=== PATIENT | female | born 1935 | race African-American/Black ===

== ENCOUNTER 2021-06-15 14:05 | Inpatient (IN) | payer OTHER ==
[~2021-06-15] VITALS: Ht 165.1 cm; Wt 58.2 kg
--- NOTE | ~2021-06-15 | EMS ---
[address] [address] EMS Patient Care Report Name: SHANI ALBARADO Room #: 455-P ADM IN M.R.#: [id number] Admission: 06/15/21 Attend Phys: Sergey Hickman MD Discharge: Date of : 37 Report #: [id number] THIS REPORT FOR: //name// Report Transmitted: 06/16/2021 11:37 EMS Care Summary [place], [place]/[facility] Incident [id number] @ 06/15/2021 13:40 Incident Location [address] [place] [address] Patient SHANI ALBARADO Female, 85 Years 1935 Patient Address Patient History Congestive Heart Failure (CHF),Hypertension (HTN),Hyperlipidemia,Gout, Patient Allergies No known allergies, Patient Medications Allopurinol, Lovastatin, Triamterene, Ventolin, Amlodipine, Tamsulosin, Chief Complaint Weakness Disposition Transported No Lights/[place] Dispatch Reason Sick Person Transported To [facility] Narrative Arrived on scene to meet staff of the fdc with the patient. Patient stated that she had been "hurting all over for a couple months." Patient was alert to name and city, but could not answer any other orientation questions. intermediate staff was unable to provide any verbal information relating to the patient's mental status baseline, any recent history of falls, injuries, or medical conditions. Staff was also unable to provide any information relating [address] [address] EMS Patient Care Report Name: SHANI ALBARADO Room #: 455-P ADM IN M.R.#: [id number] Admission: 06/15/21 Attend Phys: Sergey Hickman MD Discharge: Date of : 37 Report #: [id number] to the reason or event(s) that occurred leading to the patient becoming a resident at the nursing facility. Patient was unable to give a specific location of pain, and any location I palpated was. Patient was AO2/GCS14 upon our arrival, when asked if this was the patient's baseline three individual fdc staff members stated "I don't know." While the patient was still seated in her bed a rapid assessment for injuries was performed. Patient had pain on palpation to her arms, chest, abdomen, hips, and legs. No abnormalities, deformities, dislocations, crepitus, or swelling were felt on palpation. Initial Vitals @13:56P: 105,R: 16,BP: 138/73,Pain: 4/10,GCS: 14,CO: 6,SpO2: 97,Revised Trauma: 12, @13:58P: 108,R: 16,BP: 133/71,Pain: 4/10,GCS: 14,CO: 5,SpO2: 98,Revised Trauma: 12, Assessments @13:49MENTAL:Confused,Place Oriented,Person Oriented,SKIN:HEENT:Head/Face: No Abnormalities,Neck/Airway: No Abnormalities,LUNG SOUNDS:Left Upper: No Abnormalities,Right Upper: No Abnormalities,Left Lower: No Abnormalities,Right Lower: No Abnormalities,ABDOMEN:Left Upper: No Abnormalities,Right Upper: No Abnormalities,Left Lower: No Abnormalities,Right Lower: No Abnormalities,PELVIS//GI:No Abnormalities,EXTREMITIES:Right Leg: Weakness,Left Leg: Weakness,Left Arm: No Abnormalities,Right Arm: No Abnormalities,PULSE:NEURO:No Abnormalities, Impression Generalized Weakness Procedures @13:49ALS AssessmentResponse: UnchangedSucceeded Timeline 13:38,Call Received 13:38,Dispatch Notified 13:40,Dispatched 13:40,En Route 13:47,On Scene 13:49,At Patient 13:49,ALS Assessment,Response: UnchangedSucceeded, 13:54,Depart Scene 13:56,BP: 138/73 M,PULSE: 105,RR: 16 R,SPO2: 97 Ox,ETCO2: ,BG: ,PAIN: 4,GCS: 14, 13:58,BP: 133/71 M,PULSE: 108,RR: 16 R,SPO2: 98 Ox,ETCO2: ,BG: ,PAIN: 4,GCS: 14, 14:03,At Destination [address] [address] EMS Patient Care Report Name: PERSHNAI SHAKEEL Room #: 455-P ADM IN M.R.#: [id number] Admission: 06/15/21 Attend Phys: Sergey Hickman MD Discharge: Date of : 37 Report #: [id number] 14:15,Call Closed Disclaimer v1.1 Copyright 2020 [employer] This EMS Care Summary contains data elements from the applicable legal record (which may be displayed differently). It is designed to provide pertinent information for the following purposes: continuity of care, clinical quality, and state data reporting. The complete legal record is available to ED staff and administrators of the receiving hospital in [employer]'s Patient Tracker. All data is provided "as is."
--- NOTE | ~2021-06-15 | EMS ---
[address] [address] EMS Patient Care Report Name: SHANI ALBARADO Room #: 455-P ADM IN M.R.#: [id number] Admission: 06/15/21 Attend Phys: Sergey Hickman MD Discharge: Date of : 37 Report #: [id number] THIS REPORT FOR: //name// Report Transmitted: 06/18/2021 16:16 EMS Care Summary [place], [place]/[facility] Incident [id number] @ 06/15/2021 13:40 Incident Location [address] [place] [address] Patient SHANI ALBARADO Female, 85 Years 1935 Patient Address Patient History Congestive Heart Failure (CHF),Hypertension (HTN),Hyperlipidemia,Gout, Patient Allergies No known allergies, Patient Medications Allopurinol, Lovastatin, Triamterene, Ventolin, Amlodipine, Tamsulosin, Chief Complaint Weakness Disposition Transported No Lights/[place] Dispatch Reason Sick Person Transported To [facility] Narrative Arrived on scene to meet staff of the group home with the patient. Patient stated that she had been "hurting all over for a couple months." Patient was alert to name and city, but could not answer any other orientation questions. assisted staff was unable to provide any verbal information relating to the patient's mental status baseline, any recent history of falls, injuries, or medical conditions. Staff was also unable to provide any information relating [address] [address] EMS Patient Care Report Name: SHANI ALBARADO Room #: 455-P ADM IN M.R.#: [id number] Admission: 06/15/21 Attend Phys: Sergey Hickman MD Discharge: Date of : 37 Report #: [id number] to the reason or event(s) that occurred leading to the patient becoming a resident at the nursing facility. Patient was unable to give a specific location of pain, and any location I palpated was. Patient was AO2/GCS14 upon our arrival, when asked if this was the patient's baseline three individual group home staff members stated "I don't know." While the patient was still seated in her bed a rapid assessment for injuries was performed. Patient had pain on palpation to her arms, chest, abdomen, hips, and legs. No abnormalities, deformities, dislocations, crepitus, or swelling were felt on palpation. Initial Vitals @13:56P: 105,R: 16,BP: 138/73,Pain: 4/10,GCS: 14,CO: 6,SpO2: 97,Revised Trauma: 12, @13:58P: 108,R: 16,BP: 133/71,Pain: 4/10,GCS: 14,CO: 5,SpO2: 98,Revised Trauma: 12, Assessments @13:49MENTAL:Person Oriented,Place Oriented,Confused,SKIN:HEENT:Head/Face: No Abnormalities,Neck/Airway: No Abnormalities,LUNG SOUNDS:Left Upper: No Abnormalities,Right Upper: No Abnormalities,Left Lower: No Abnormalities,Right Lower: No Abnormalities,ABDOMEN:Left Upper: No Abnormalities,Right Upper: No Abnormalities,Left Lower: No Abnormalities,Right Lower: No Abnormalities,PELVIS//GI:No Abnormalities,EXTREMITIES:Left Leg: Weakness,Right Leg: Weakness,Left Arm: No Abnormalities,Right Arm: No Abnormalities,PULSE:NEURO:No Abnormalities, Impression Generalized Weakness Procedures @13:49ALS AssessmentResponse: UnchangedSucceeded Timeline 13:38,Call Received 13:38,Dispatch Notified 13:40,Dispatched 13:40,En Route 13:47,On Scene 13:49,At Patient 13:49,ALS Assessment,Response: UnchangedSucceeded, 13:54,Depart Scene 13:56,BP: 138/73 M,PULSE: 105,RR: 16 R,SPO2: 97 Ox,ETCO2: ,BG: ,PAIN: 4,GCS: 14, 13:58,BP: 133/71 M,PULSE: 108,RR: 16 R,SPO2: 98 Ox,ETCO2: ,BG: ,PAIN: 4,GCS: 14, 14:03,At Destination [address] [address] EMS Patient Care Report Name: PERSHANI Room #: 455-P ADM IN M.R.#: [id number] Admission: 06/15/21 Attend Phys: Sergey Hickman MD Discharge: Date of : 37 Report #: [id number] 14:15,Call Closed Disclaimer v1.1 Copyright 2020 [facility] This EMS Care Summary contains data elements from the applicable legal record (which may be displayed differently). It is designed to provide pertinent information for the following purposes: continuity of care, clinical quality, and state data reporting. The complete legal record is available to ED staff and administrators of the receiving hospital in [employer]s Patient Tracker. All data is provided "as is."
[~2021-06-15 14:05] MED LIST: ACYCLOVIR 400400 MG PO; CORTISPORIN OTI10 M2 OT; HYDROCODON-ACE1 EAC7 PO; LISINOPRIL40 MG PO; LOVASTAT40; NITROSTAT0.4 MG SL; NORCO 5-325 TA1 EACH PO; OMEPRAZOLE 20 M20 MG PO; TRIAMTERENE-HC1 EAC1 PO; ZOFRAN4 MG PO
[2021-06-15 14:06] VITALS: BP 158/76
--- NOTE | 2021-06-15 14:13 | NUR ---
RIVKA SAWANT (DAUGHTER ) [phone]
[2021-06-15 14:31] LABS: ABSOLUTE NEUTROPHILS 10.2 thou/uL (1.4-8.2); BASOPHILS 0.4 % (0.0-2.0); EOSINOPHILS 0.5 % (0.0-3.0); HEMATOCRIT 34.3 % (37.0-47.0); LYMPHOCYTES 7.4 % (24.0-44.0); MCH 30.2 pg (26.0-34.0); MCHC 32.2 g/dL (28.0-37.0); MCV 93.9 fL (80.0-100.0); MONOCYTES 3.8 % (1.0-8.0); PLATELET COUNT 269 thou/uL (150-400); POLYS 87.9 % (36.0-66.0); RBC 3.65 mil/uL (4.20-5.00); RDW 15.5 % (10.5-14.5); WBC 11.7 thou/uL (4.0-11.0)
[2021-06-15 14:56] LABS: ALBUMIN 2.4 g/dL (3.4-5.0); CALCIUM 9.5 mg/dL (8.5-10.1); CREATININE 3.3 mg/dL (0.6-1.0); TOTAL BILIRUBIN 0.2 mg/dL (0.2-1.0); TOTAL PROTEIN 7.2 g/dL (6.4-8.2)
[2021-06-15 15:02] LABS: POTASSIUM 6.7 mmol/L (3.5-5.1)
[2021-06-15 15:08] LABS: MAGNESIUM 2.4 mg/dL (1.8-2.4); PHOSPHORUS 5.7 mg/dL (2.5-4.9)
[2021-06-15 15:24] LABS: URINE BILIRUBIN NEGATIVE (Negative); URINE BLOOD 3+ (Negative); URINE CLARITY SL CLOUDY; URINE COLOR YELLOW; URINE GLUCOSE-RANDOM* NEGATIVE (Negative); URINE KETONES NEGATIVE (Negative); URINE NITRITE-REFLEX NEGATIVE (Negative); URINE PROTEIN (DIPSTICK) 2+ (Negative); URINE UROBILINOGEN 0.2 E.U./dl (0.2-1.0)
[2021-06-15 15:41] LABS: URINE LEUKOCYTES-REFLEX 1+ (Negative)
[2021-06-15 16:03] LABS: BACTERIA-REFLEX >30 Many /HPF (None Seen); SQUAMOUS 0-3 Few /LPF (0-3); URINE RBC 1-2 Rare /HPF (NONE SEEN); URINE WBC-REFLEX 6-15 Few /HPF (0-5)
--- NOTE | 2021-06-15 16:29 | EKG ---
[place] [address] 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 : 1935 Requested By: Ricky Negrete Order Number: [id number] MD: Armand Rocha Measurements Intervals [place] Rate: 109 P: 37 AK: 129 QRS: 8 QRSD: 95 T: 114 QT: 317 QTc: 427 Interpretive Statements Sinus tachycardia Nonspecific T abnormalities, lateral leads Compared to ECG 03/17/2013 12:44:42 T-wave abnormality now present Sinus bradycardia no longer present Atrial premature complex(es) no longer present Electronically Signed On 06-15-2021 16:29:45 CDT by Armand Rocha [email or web address] <ELECTRONICALLY SIGNED> By: Armand Rocha MD, [facility] 06/15/21 1629 1423 1423 Armand Rocha MD, FACC /EPI
[2021-06-15] MEDS ORDERED: ALLOPURINOL 30300 M1 PO (16:41)
[2021-06-15] MEDS ORDERED: OLMESARTAN MEDO40 MG PO (16:41)
[2021-06-15] MEDS ORDERED: TRIAMTERENE-HC1 EAC2 PO (16:41)
[2021-06-15] MEDS ORDERED: NORVASC5 MG PO (16:41)
[2021-06-15] MEDS ORDERED: LOVASTATIN40 MG PO (16:41)
[2021-06-15] MEDS ORDERED: OMEPRAZOLE 20 M20 M1 PO (16:41)
[2021-06-15 19:09] VITALS: BP 158/76
[2021-06-15 19:25] VITALS: BP 129/63
[2021-06-15 20:03] VITALS: BP 119/54
[2021-06-15 22:24] LABS: CREATININE 3.1 mg/dL (0.6-1.0); POTASSIUM 5.8 mmol/L (3.5-5.1)
[2021-06-15 22:46] LABS: CALCIUM 8.4 mg/dL (8.5-10.1)
[2021-06-16] MEDS ORDERED: CHILDREN'S ASPI81 M1 PO (05:06)
[2021-06-16] MEDS ORDERED: FLOMAX0.4 MG PO (05:07)
[2021-06-16] MEDS ORDERED: VENTOLIN HFA 1818 GM INH (05:09)
--- NOTE | 2021-06-16 06:12 | NUR ---
Pt admitted from ED with UTI/Hyperkalemia. A/OX1-2,VSS. Oriented to the unit. Unable to sign admission paperwork d/t cognitive status. Pt incontinent of B&b,cleveland placed per seed cleaning machine operator order,dark cloudy/sediment urine noted upon insertion. Open sore noted on sacrum,wound picture taken,zguard and foam applied. Fall precautions in place,will continue to monitor pt.
[2021-06-16 07:57] LABS: HEMATOCRIT 33.1 % (37.0-47.0); HEMOGLOBIN 10.2 gm/dL (12.0-15.0); MCH 29.3 pg (26.0-34.0); MCHC 30.9 g/dL (28.0-37.0); PLATELET COUNT 250 thou/uL (150-400); RBC 3.49 mil/uL (4.20-5.00); RDW 15.7 % (10.5-14.5); WBC 11.9 thou/uL (4.0-11.0)
[2021-06-16 08:17] LABS: CALCIUM 8.5 mg/dL (8.5-10.1); CREATININE 2.8 mg/dL (0.6-1.0); MAGNESIUM 2.1 mg/dL (1.8-2.4); PHOSPHORUS 4.9 mg/dL (2.5-4.9); POTASSIUM 5.8 mmol/L (3.5-5.1)
--- NOTE | 2021-06-16 09:41 | NUR ---
WOUND CONSULT; ASSESSMENT OF THE AREA TO THE COCCYX IS 1 X 1 X 0.1 THERE IS NO S/S OF INFECTION AT THIS TIME. THERE IS ONLY SMALL AMOUNT OF SEROSANGINOUS DRAINAGE. RECCOMMENDATIONS; -Q2H TURNING AT A MINIMUM. -CLEANSE WITH NORMAL SALINE,DRY, APPLY ZGUARD BID. -USE PILLOWS AND/OR WEDGES TO OFFLOAD AREA.
[2021-06-16 10:28] LABS: PLATELET ESTIMATE NORMAL
[2021-06-16 16:07] LABS: HAV IgM AB (ANTI-HAV IgM) Negative (Negative); HEPATITIS B SURFACE AG Negative (Negative); HEPATITIS C VIRUS AB <0.1 (0.0-0.9)
--- NOTE | 2021-06-16 16:55 | NUR ---
PT ADMITTED RELATED TO UTI/HYPERKALEMIA. CM REVIEWED CHART AND SPOKE WITH CARE TEAM. CM CALLED PT'S AMANDAECE RIVKA SAWANT . SHE INDICATED THAT PT HAD BEEN AT [facility] WITH [facility] AND HAD GONE TO [facility] SKILLED IN [place]. NIECE HAD INDICATED THAT PRIOR TO THAT PT HAD LIVED ALONE IN A HOUSE AND HAD BEEN INDEPENENT WITH GAIT AND ADLS. SHE STATED THAT PT HAD A SISTER WHO HELPED WITH TRANSPORTATION TO APPOINTMENTS. NIECE INDICATED THAT PT HAD BEEN WALKING UPON ADMISSION TO [facility] AND IS NOW DEPENDENET FOR ALL CARES. SHE INDICATED SHE DIDN'T WANT PT RETURNING TO [facility]. CM TO EMAIL HER A [facility] LIST. CM INDICATED CM CAN'T GAURENTEE THAT CM WILL BE ABLE TO FIND PT NEW PLACEMENT UPON DC BUT THAT WE CAN ATTEMPT TO DO SO. CM FOLLOWING REGARDING DC PLANNING.
--- NOTE | 2021-06-16 18:34 | NUR ---
ASSUMED CARE OF PT AT 0700. PATIENT IS ORIENTED BUT DROWSY AND FORGETFUL. PT RESTED THROUGHOUT THE DAY, WORKED WITH PT AND OT. NOTICED PT HR ELEVATING LATER IN EVENING, CALLED PHARMACY TO FIX FLUIDS. WILL TELL SECONDARY SET UP MAN RN TO MONITOR CLOSELY. FAMILY IS CONCERNED OF PT DECLINE OVER THE LAST FEW MONTHS. WILL CONTINUE TO MONITOR.
[2021-06-16 19:26] VITALS: BP 122/65
--- NOTE | 2021-06-17 04:03 | NUR ---
PROGRESS PT ALERT AND ORIENTED X2, DEAL INTACT DRAINING ADEQUATE AMOUNT OF DARK CAT URINE. VSS, ACCUCHECKS WNL NO SSI INDICATED. PT HAS POOR APPETITE DINNER TRAY WAS UNTOUCHED ATTEMPTED TO FEED HER BUT SHE REFUSED, ONLY TOOK A FEW SIPS OF LIQUID WITH HS MEDS. BICARB IVF'S INFUSING @80CC/HR INTO LF WITHOUT DIFFICULTY. SACRAL WOUND CLEANSED AND ZYGUARD APPLIED PT REPOSITIONED MUCH TOLERATED. TELEMETRY RUNNING TACHYCARDIA WITH RATES IN THE LOW 100'S TO THE 119. LUNGS CLEAR BUT DIMINISHED. PLAN IS TO HYDRATE PT CORRECT HEDY AND INCREASE STRENGTH WITH PT/OT AND ST. CONTINUE TO MONITOR.
[2021-06-17 09:05] LABS: ALBUMIN 1.7 g/dL (3.4-5.0); CALCIUM 8.4 mg/dL (8.5-10.1); CREATININE 3.1 mg/dL (0.6-1.0); POTASSIUM 5.3 mmol/L (3.5-5.1)
--- NOTE | 2021-06-17 16:09 | NUR ---
CM EMAILED [facility] LIST FOR REVIEW. NO RESPONSE RECEIVED. CM FOLLOWING REGARDING DC PLANNING.
[2021-06-17 16:52] LABS: ALBUMIN 1.7 g/dL (3.4-5.0); DIRECT BILIRUBIN < 0.1 mg/dL (<0.1-0.2); SGOT 941 U/L (15-37); SGPT 493 U/L (14-59); TOTAL BILIRUBIN 0.2 mg/dL (0.2-1.0); TOTAL PROTEIN 4.9 g/dL (6.4-8.2)
[2021-06-17 17:07] VITALS: BP 121/64
--- NOTE | 2021-06-17 18:34 | NUR ---
END SHIFT NOTE: PT REMAINED SAFE AND COMFORTABLE DURING THE SHIFT. CHANGED Q2 , DRESSING CHANGED IN COCCYX WOUND, VSS, MEDS ADM ORDERED, VERY POOR APPETITE ALTHOUGH WAS NPO THE REST OF THE DAY DUE TO SCHEDULE ABM USD( SEE RESULT ). VSS, CONT POC GLUC CONTROLLED.
[2021-06-17 19:42] LABS: % SATURATION 26 % (20-39); IRON 32 ug/dL (50-170); TIBC 121 ug/dL (250-450)
[2021-06-17 19:56] VITALS: BP 120/62
[2021-06-18 04:07] LABS: IgG 811 mg/dL (586-1602)
[2021-06-18 05:59] LABS: HEMATOCRIT 27.4 % (37.0-47.0); MCH 30.9 pg (26.0-34.0); MCV 93.5 fL (80.0-100.0); RBC 2.93 mil/uL (4.20-5.00); RDW 15.5 % (10.5-14.5); WBC 12.9 thou/uL (4.0-11.0)
--- NOTE | 2021-06-18 06:20 | NUR ---
ASSUMED CARE OF PT AROUND 1900HRS. PT IS AOX2 AND NEEDS MUST BE ASSUMED. FALL PRECAUTION IN PLACE. PT DENIED PAIN, NAUSEA OR SOA. ASSESSMENT CHARTED. DEAL IN PLACE AND PATIENT. PT TURNED Q2H. ASSESSMENT CHARTED. UNABE TO RETRIEVE MR ROBERT NOC; WILL INFORM US AND ONCOMING RN. PT WAS ABLE TO GET COMFORTABLE AND SLEEP RART OF THE SHIFT. VSS AND NO S/S OF ACUTE DISTRESS. WILL CONTINUE TO MONITOR FOR CHANGES.
[2021-06-18 06:32] LABS: ALBUMIN 1.6 g/dL (3.4-5.0); CALCIUM 8.2 mg/dL (8.5-10.1); CREATININE 3.2 mg/dL (0.6-1.0); PHOSPHORUS 6.3 mg/dL (2.5-4.9); POTASSIUM 5.3 mmol/L (3.5-5.1); TOTAL BILIRUBIN 0.3 mg/dL (0.2-1.0); TOTAL PROTEIN 5.4 g/dL (6.4-8.2)
[2021-06-18 08:00] VITALS: BP 150/85
[2021-06-18 11:07] LABS: HIV ANTIBODY Non Reactive (Non Reactive)
[2021-06-18 12:07] LABS: ANA INTERPRETATION Negative (Negative); CERULOPLASMIN 20.9 mg/dL (19.0-39.0)
--- NOTE | 2021-06-18 12:34 | NUR ---
WOUND CARE F/U; F/U EVAL IS UNREMARKABLE. THE PATIENT IS COOPERATIVE AND VERY PLEASANT. THE WOUND REMAINS STABLE. NO S/S OF INFECTION. THE PATIENT CAN FEEL THE PAIN RELATED TO HER COCCYX WOUND AND REQUEST THEREFORE TO BE TURNED, WHICH I DID. AND APPLIED ZGUTOM. SHE STATED "THAT FEELS BETTER". RECCOMMENDATIONS; -CONTINUE TO TURN THE PATIENT Q2H AT A MINIMUM. -CONTINUE ZGUARD. DISCUSSED WITH RN TODAY.
--- NOTE | 2021-06-18 12:36 | NUR ---
HOSPITALIST INDICATED THAT HE HAD CONSULTED 5N. PT AND ST WORKING WITH PT OT HAS DISCHARGED. CM SPOKE WITH PT'S NIECE AND SHE HADN'T GOTTEN EMAIL FROM [facility] WITH [facility] LIST. CM RESENT IT THIS AM. CM FOLLOWING REGARDING DC PLANNING.
[2021-06-18 15:37] VITALS: BP 136/67
[2021-06-18 16:19] LABS: INR 1.14; PROTIME 12.3 Seconds (10.5-12.1)
--- NOTE | 2021-06-18 18:13 | NUR ---
Assumed pt care at 7am.Pt in bed very anxious about getting out of bed. Assessment completed.vss but elevated bp noted.Pt transfered to chair wih 2 assist for breakfast. Fair appetite. Dr Hickman and Luis here,order noted. Pt niece called and updates given.Wound care here and giulia applied to pt peressure sore on her bottom.Pt has fair appetite. Fall bundle in place. Will continue to monitor.
[2021-06-18 19:54] VITALS: BP 141/86
[2021-06-19 06:48] LABS: ALBUMIN 1.7 g/dL (3.4-5.0); ANION GAP 12 mmol/L (7-16); BUN 95 mg/dL (7-18); CALCIUM 7.5 mg/dL (8.5-10.1); CHLORIDE 99 mmol/L (98-107); CO2 28 mmol/L (21-32); CREATININE 3.2 mg/dL (0.6-1.0); GLUCOSE 116 mg/dL (74-106); PHOSPHORUS 7.2 mg/dL (2.5-4.9); POTASSIUM 5.4 mmol/L (3.5-5.1); SGOT 1343 U/L (15-37); SGPT 693 U/L (30-65); SODIUM 139 mmol/L (136-145); TOTAL BILIRUBIN 0.2 mg/dL (0.2-1.0); TOTAL PROTEIN 4.8 g/dL (6.4-8.2)
--- NOTE | 2021-06-19 07:22 | NUR ---
patient aox1 confused and forgetful. patient incontinent of bowel pericare and barrier cream applied. cath care done. patient removed her iv, new iv placed on lfa.fall precaution in place. patient in bed asleep at this time breathing regular and unlaboured.
[2021-06-19 07:41] VITALS: BP 124/66
[2021-06-19 12:15] VITALS: BP 124/64
--- NOTE | 2021-06-19 12:21 | NUR ---
NIECE HAD RESPONDED AND INDICATED THAT THEY WERE INTERESTED IN REFERRAL BEING SENT TO [facility] FOR REVIEW FOR POSSIBLE ADMISSION. CM INDICATED THAT REFERRAL COULD BE SENT THERE BUT THAT IF PT NEEDS LTC THEY WOULDN'T BE ABLE TO KEEP PT SHE [place] [facility] [facility] SO [place]AC[place] MORE SUITABLE. CM SENT REFERRAL. WOULD NEED ACCEPTING FACILITY AND AUTH PRIOR TO DISCHARGE.
--- NOTE | 2021-06-19 14:33 | NUR ---
Assumed pt care at 7am.Pt in bed resting without c/o. Assessment completed. vss.Dr Smtih and Marylou here,order noted. Pt tolerated meds and diet, Pt does not have appetite for food today but oral fluid encouraged. Received call from pt madisyn,updates given.Repositioned pt in bed q2h for comfort.Zguard applied to bottom by prorate clerk. No distress s/s noted. Pt in bed sound asleep at present. Will continue to monitor.
[2021-06-19 17:30] VITALS: BP 130/71
[2021-06-19 19:58] VITALS: BP 127/78
[2021-06-20 00:23] VITALS: BP 147/77
--- NOTE | 2021-06-20 03:00 | NUR ---
patient aox1 confused and forgetful.z guard applied to the cocxy.patient had a bm pericare and barrier cream applied. cath care done. patient turned q 2 hours. patient refused open her mouth during med pass. patient refused to take hs meds.fall precaution in place.patient in bed asleep at this time breathing regular and unlaboured.
[2021-06-20 04:20] VITALS: BP 127/70
[2021-06-20 05:45] LABS: ALBUMIN 1.4 g/dL (3.4-5.0); CREATININE 3.1 mg/dL (0.6-1.0); PHOSPHORUS 6.8 mg/dL (2.6-4.7); POTASSIUM 5.2 mmol/L (3.5-5.1); TOTAL BILIRUBIN 0.2 mg/dL (0.2-1.0); TOTAL PROTEIN 5.1 g/dL (6.4-8.2)
[2021-06-20 07:24] VITALS: BP 151/82
[2021-06-20 15:50] VITALS: BP 108/85
[2021-06-20 20:27] VITALS: BP 136/65
--- NOTE | 2021-06-21 02:26 | NUR ---
PT CARE ASSUMED WITH PT IN BED SLEEPING.PT IS A/O TO SELF.PT SLEEPING MOST OF THE SHIFT BUT ABLE TO OPEN EYES TO TOUCH AND VOICE.WOUND ON COCCYX CLEAN WITH SALINE AND APPLY ZGUARD NEEDED.IV ACCESS ON LT FA WITH NS AT 75CC/HR.DEAL CATHETER IN PLACE.Q2 REPOSITIONING.ACCUCHECK ACHS .PT IS A FEEDER.WILL CONTINUE TO MONITOR PER POC
[2021-06-21 04:43] VITALS: BP 150/74
[2021-06-21 05:16] LABS: ALBUMIN 1.4 g/dL (3.4-5.0); CREATININE 3.1 mg/dL (0.6-1.0); PHOSPHORUS 8.3 mg/dL (2.6-4.7)
[2021-06-21 07:32] VITALS: BP 138/66
--- NOTE | 2021-06-21 15:03 | NUR ---
ASSUMED PT CARE AROUND 0715. PT A X O SELF, ON ROOM AIR, TOTAL CARE. IV LF FOREARM/NS/75MLS/HR.DEAL DRAINING DARK COLORED URINE. LBM YESTERDAY. WOUND ON SACRUM, CLEANED WITH NS AND Z SIDNEYARD APPLIED.ON TELE RUNNING TACHY. ACCUCHECK X ACHS. FAMILY IN THE ROOM TODAY NOON. PT NOT EATING WELL, BUT TAKES FLUIDS OK. FALL PRECT IN PLACE. WILL CONTINUE TO MONITOR.
[2021-06-21 15:48] VITALS: BP 139/74
[2021-06-21 20:07] VITALS: BP 132/85
--- NOTE | 2021-06-22 02:14 | NUR ---
PT CARE ASSUMED WITH PT IN BED.PT IS A/O TO SELF.PT APPEAR TO BE SLEEPING THROUGHOUT SHIFT TILL NOW BUT AWAKE TO TOUCH AND NOISE.PT IS MAX ASSIST AND Q2 TURN.PT HAS A DEAL IN PLACE AND INCONTINENT TO BOWEL.IV ACCESS ON LT FA WITH NS AT 75CC/HR.WILL CONTINUE TO MONITOR PER POC
[2021-06-22 05:35] LABS: HEMOGLOBIN 9.2 gm/dL (12.0-15.0); MCH 29.3 pg (26.0-34.0); MCHC 30.6 g/dL (28.0-37.0); MCV 95.9 fL (80.0-100.0); PLATELET COUNT 309 thou/uL (150-400); RBC 3.13 mil/uL (4.20-5.00); RDW 15.5 % (10.5-14.5); WBC 33.6 thou/uL (4.0-11.0)
[2021-06-22 05:57] LABS: ALBUMIN 1.4 g/dL (3.4-5.0); ANION GAP 13 mmol/L (7-16); BUN 120 mg/dL (7-18); CALCIUM 7.1 mg/dL (8.5-10.1); CHLORIDE 107 mmol/L (98-107); CO2 21 mmol/L (21-32); CREATININE 3.6 mg/dL (0.6-1.0); DIRECT BILIRUBIN < 0.1 mg/dL (<0.1-0.2); GLUCOSE 154 mg/dL (74-106); MAGNESIUM 2.5 mg/dL (1.8-2.4); PHOSPHORUS 9.7 mg/dL (2.6-4.7); SGOT 1304 U/L (15-37); SGPT 967 U/L (14-59); SODIUM 141 mmol/L (136-145); TOTAL BILIRUBIN 0.3 mg/dL (0.2-1.0); TOTAL PROTEIN 5.5 g/dL (6.4-8.2)
[2021-06-22 05:59] LABS: POTASSIUM 7.7 mmol/L (3.5-5.1)
[2021-06-22 08:47] LABS: ABSOLUTE NEUTROPHILS 31.9 thou/uL (1.4-8.2)
[2021-06-22 08:48] LABS: ANISOCYTOSIS 1+
[2021-06-22 09:08] LABS: BE(vivo) -3.8 mmol/L (-2 to +3); HCO3 20.6 mmol/L (22.0-26.0); PCO2 35.1 mmHg (35.0-45.0); PO2 43.9 mmHg (80.0-100.0); pH 7.387 (7.360-7.450); sO2 79.7 % (92.0-98.0)
--- NOTE | 2021-06-22 09:17 | EKG ---
[address] [place] [address] ELECTROCARDIOGRAM REPORT Name: SHANI ALBARADO Room #: 455- ADM IN M.R.#: [id number] Admission: 06/15/21 Attend Phys: Sergey Hickman MD Discharge: Date of : 37 Report #: [id number] [facility] Test Date: 2021-06-22 Test Time: 09:08:44 Pat Name: SHANI ALBARADO Department: Room: 455 P Gender: F Conservation Coordinator: : 1935 Requested By: Sergey Hickman Order Number: [id number] MD: Armand Rocha Measurements Intervals [place] Rate: 117 P: 54 AR: 132 QRS: 0 QRSD: 76 T: 72 QT: 319 QTc: 445 Interpretive Statements Sinus tachycardia Low voltage, extremity leads Nonspecific T abnormalities, lateral leads Compared to ECG 06/15/2021 14:23:14 Low QRS voltage now present T-wave abnormality still present Electronically Signed On 06-22-2021 9:17:02 CDT by Armand Rocha [email or web address] <ELECTRONICALLY SIGNED> By: Armand Rocha MD, [facility] 06/22/21916 7 7 Armand Rocha MD, [facility] /EPI
--- NOTE | 2021-06-22 11:24 | NUR ---
[facility]PON[facility] WAS CALLED ON PT THIS AM. DR. TREVIÑO SPOKE WITH PT'S NIECE MS. SAWANT THIS AM AND PT WAS MADE A DNR. PT PASSED LATER THE MORNING. PT'S NIECE ARRIVED AT BEDSIDE AND NURSE, PASORTAL SERVICES, AND CARE TEAM MET WITH HER. NO OTHER CM ITNERVETNION INDICATED. CASE CLOSED.
--- NOTE | 2021-06-22 12:38 | NUR ---
AT 0848 DR. TREVIÑO WAS CALLED IN REGARDS TO PATIENT DECLINE. INCREASED RESPIRATIONS AND LABORED BREATHING. 0900 MEDS NOT GIVEN DUE TO CHANGE IN STATUS. [facility] RESPONSE INITIATED AT 0855. 0859 RT/PHARMACY AT BEDSIDE. 904 EKG COMPLETED. 09 CXR AT BEDSIDE. PT PLACED ON BIPAP. PROVIDER CALLED FAMILY REGARDING CODE STATUS. PATIENT WAS DEEMED DNR AT 0924. PROVIDER WANTED PATIENT ON BIPAP UNTIL ANOTHER ABG WAS COMPLETED 30 MIN AFTER THE PREVIOUS ABG. RT CAME UP TO ATTEMPT ANOTHER ABG DRAW, PRESSURES LOW 30'S/TEENS, HEART RATE DECREASED TO THE TEENS-30'S. TELE STATED PATIENT'S HEART RATE WAS 50-30'S. MANUAL CHECK AND AUSCULTATION COMPLETED. NO PULSES TO RADIUS, CAROTIDS, FEMORAL. HEARTBEAT WAS NOT ABLE TO BE HEARD BY 2 NURSES. PROVIDER, DR. TREVIÑO CALLED AT 1030. DR. TREVIÑO WANTED AN EKG TO CONFIRM, TELE THEN CONFIRMED ASYSTOLE. CHARGE NURSE, MESHA, STATED WE NO LONGER NEEDED EKG. PROVIDER NOTIFIED. PT NEXT OF KIN NOTIFIED OF . END OF LIFE CARE AND PROCESS COMPLETED. 1228 SECURITY CAME TO TAKE PATIENT DOWNSTAIRS TO [facility].
== END 2021-06-22 13:00 | DRG 871 ==
LOC: ER 14:05 → 4W 17:13 → EROBS 17:13 → 4W 19:25
PROVIDERS: Emergency Medicine; Internal Medicine Gastroenterology; Internal Medicine Nephrology; Nurse Practitioner; ADMIT Internal Medicine; ATTEND Internal Medicine
DX: A41.9 Sepsis, unspecified organism (principal); N17.0 Acute kidney failure with tubular necrosis; G92.8 Other toxic encephalopathy; N39.0 Urinary tract infection, site not specified; I50.32 Chronic diastolic (congestive) heart failure; E44.0 Moderate protein-calorie malnutrition; E87.2 Acidosis; M62.82 Rhabdomyolysis; I13.0 Hypertensive heart and chronic kidney disease with heart failure and stage 1 through stage 4 chronic kidney disease, or unspecified chronic kidney disease; B17.9 Acute viral hepatitis, unspecified; E87.5 Hyperkalemia; N18.9 Chronic kidney disease, unspecified; R74.8 Abnormal levels of other serum enzymes; I25.10 Atherosclerotic heart disease of native coronary artery without angina pectoris; E86.0 Dehydration; K72.90 Hepatic failure, unspecified without coma; E78.00 Pure hypercholesterolemia, unspecified; Z20.822 Contact with and (suspected) exposure to COVID-19; R53.81 Other malaise; M10.9 Gout, unspecified; B96.20 Unspecified Escherichia coli [E. coli] as the cause of diseases classified elsewhere; D64.9 Anemia, unspecified; M19.90 Unspecified osteoarthritis, unspecified site; E83.39 Other disorders of phosphorus metabolism; I46.9 Cardiac arrest, cause unspecified; Z86.16 Personal history of COVID-19; Z87.01 Personal history of pneumonia (recurrent); Z95.1 Presence of aortocoronary bypass graft; Z68.21 Body mass index [BMI] 21.0-21.9, adult; Z98.49 Cataract extraction status, unspecified eye; Z90.49 Acquired absence of other specified parts of digestive tract; Z51.5 Encounter for palliative care
CPT/HCPCS: 10045